=== PATIENT | male | born 1975 | race African-American/Black ===

== ENCOUNTER 2018-10-25 09:42 | Emergency (ER) | payer OTHER, MEDICAID, SELFPAY ==
[2018-10-25 09:45] VITALS: BP 152/95; PULSE 98; RESP 18; TEMP 36.4; O2SAT 95
--- NOTE | 2018-10-25 09:57 | ED.SOB ---
HPI - SOB/Dyspnea General Chief Complaint: Shortness of Breath/Dyspnea Stated Complaint: Asthma is acting up Time Seen by Provider: 10/25/18 09:57 Source: patient and other (Significant other) Mode of arrival: ambulatory Limitations: no limitations History of Present Illness This is a 43-year-old male who comes to the emergency department with complaint of shortness of breath. Patient states he woke up this morning and was wheezy. He had run out of his albuterol inhaler. He tried bronch 8 which is ephedrine and guaifenesin and was actually helpful in his wheezing resolved. The patient came in to get his albuterol refilled. He states he has not had any fevers or chills. He has had maybe some very mild runny nose for several months but no other cold cough or congestion. He does not have any chest pain, no shortness of breath currently and only when he feels wheezy. Patient has not had any other GI or urinary symptoms. No regular swelling in his extremities. Patient has a history of asthma states he was hospitalized when he was a child. He does continue to smoke tobacco. Patient is not on a steroid inhaler. Related Data Home Medications Medication Instructions Recorded Confirmed ephedrine-guaifenesin 2 tab PO Q4H PRN 10/25/18 10/25/18 Previous Rx's Medication Instructions Recorded albuterol sulfate 2 puff INHALATION Q4-6H PRN #8 gram 10/25/18 beclomethasone dipropionate [Qvar 1 puff INHALATION BID #10.6 gram 10/25/18 RediHaler] Allergies Allergy/AdvReac Type Severity Reaction Status Date / Time No Known Drug Allergies Allergy Verified 10/25/18 09:51 Review of Systems Review of Systems ROS Unobtainable: All systems reviewed & are unremarkable except as noted in HPI and below Constitutional Denies body ache(s), Denies chills, Denies fever(s), Denies lethargy and Denies weakness ENT Ears, Nose, Mouth, and Throat: Reports nasal congestion (very mild, for months) Cardiovascular Denies chest pain, Denies irregular heart rhythm, Denies lightheadedness, Denies palpitations, Reports dyspnea and Denies dyspnea on exertion Respiratory Denies change in phlegm color, Denies chest congestion, Denies cough, Denies excessive phlegm production, Denies pain on inspiration, Denies pain with cough, Reports dyspnea, Denies dyspnea on exertion and Reports wheezing Gastrointestinal Gastrointestinal: Denies abdominal pain, Denies change in bowel habits, Denies diarrhea, Denies nausea and Denies vomiting Genitourinary Denies dysuria, Denies urinary frequency and Denies urinary urgency Neurologic Denies weakness Endocrine Denies palpitations Allergic/Immunologic Reports wheezing PFSH Medical History Asthma (Acute) Social History Smoking Status: Current every day smoker Social History Smoking Status: Current every day smoker Exam Narrative Exam Narrative: GEN: well nourished, well appearing male, alert and oriented x 3, patient appears to be in no acute distress. Patient smells of tobacco smoke. HEENT: Atraumatic, pupils are equal round reactive to light, extraocular movements are intact, nares are clear, TMs are clear with no fluid, there is no conjunctival pallor. Throat is clear without any exudates, erythema, tonsillar enlargement or uvular deviation HEART: Regular rate and rhythm without murmur, clicks, rubs. LUNGS:Lungs clear to auscultation, no wheezes, rales, crackles, chest moves symmetrically, no tachypnea, no accessory muscle use. Speaks in full sentences. ABD:bowel sounds normal, soft, non-tender, no guarding, rebound, rigidity, no masses noted, no hepatosplenomegaly MSCL: Non-tender, no muscle atrophy, muscles strength 5/5 upper and lower extremities, full range of motion, normal gait NEURO:CN 2-12 intact, sensation normal Initial Vital Signs Initial Vital Signs: Vital Signs Temperature 97.6 F 10/25/18 09:45 Pulse Rate 98 H 10/25/18 09:45 Respiratory Rate 18 10/25/18 09:45 Blood Pressure 152/95 H 10/25/18 09:45 Pulse Oximetry 95 10/25/18 09:45 Course Vital Signs - 8 hr 10/25/18 09:45 Temperature 97.6 F Pulse Rate 98 H Respiratory Rate 18 Blood Pressure 152/95 H Pulse Oximetry 95 MDM - SOB/Dyspnea MDM Narrative Medical decision making narrative: Discussed with patient sounds like he has an exacerbation of his asthma. He did seem to respond to his qdrf-oxh-rydahor medication but does note a refill of his albuterol. He has symptoms or he uses has albuterol every other day sometimes multiple times during the day. He does occasionally awaken in the middle the night and requires his albuterol as well. We discussed that this sounds like he needs maintenance therapy with a steroid inhaler. He is open to starting this and given QVAR twice daily. We discussed he needs to use this medication regardless of symptoms and its goal is to decrease his albuterol use and control his asthma better. I we also discussed that he needs to rinse his mouth as well as the inhaler to prevent thrush because it is a steroid. He was also set up with a spacer and teaching with respiratory therapy on counseled not to smoke. I asked that he follow up with his primary care for recheck also some to recheck his blood pressure. I suspected elevated because he took the Excedrin earlier today. Patient does not have a known history of hypertension. Discharge Plan Departure Patient Disposition: Home Clinical Impression: Asthma Discharge Date/Time: 10/25/18 10:35 Interventions: ED Discharge Assessment Last Done: 10/25/18 10:34 Instructions: DI for Asthma -- Adult Activity Restrictions/Additional Instructions: Follow-up with her primary care in the next several weeks for recheck. You may continue albuterol 1-2 puffs every 4 hr as needed for shortness breath or wheezing. Use with a spacer. Use QVAR/steroid inhaler once twice daily regardless of symptoms. The goal of this medication is to decrease inflammation in her lungs so used her albuterol less frequently. Return to the ER for fevers greater than 100.4, worsening shortness of breath, lightheadedness or passing-out, new chest pain, persistent vomiting, new abdominal pain or other new or concerning symptoms. Prescriptions: New albuterol sulfate 90 mcg/actuation HFA aerosol inhaler 2 puff INHALATION Q4-6H PRN (Reason: shortness of breath or wheezing) Qty: 8 RF: 0 Qvar RediHaler 80 mcg/actuation HFA aerosol breath activated 1 puff INHALATION BID Qty: 10.6 RF: 0 No Action ephedrine-guaifenesin 12.5-200 mg Tablet 2 tab PO Q4H PRN (Reason: Wheezing) RF: 0
--- NOTE | 2018-10-25 10:00 | PC.NURSE ---
smoking cessation counseling given. Encouraged to seek outside assistance / speak w/ regular doctor.
== END 2018-10-25 10:35 | disposition home or self-care (01) ==
PROVIDERS: Emergency Provider Emergency Medicine
DX: J45.909 Unspecified asthma, uncomplicated (principal)
CPT/HCPCS: 94150; 99282; 99283

== ENCOUNTER 2018-12-15 11:07 | Emergency (ER) | payer OTHER, MEDICAID, SELFPAY ==
[2018-12-15 11:35] VITALS: BP 170/105; PULSE 100; RESP 16; TEMP 36.7; O2SAT 98
[2018-12-15] MEDS: ALBUTEROL 2.5 MG/3 ML NEB (ADULT) INH (11:49)
--- NOTE | 2018-12-15 12:30 | ED.URI ---
HPI - URI/Sore Throat <Mayra Junior PA-C - Last Filed: 12/15/18 21:48> General Chief Complaint: Upper Respiratory Symptoms Stated Complaint: Rk Time Seen by Provider: 12/15/18 12:08 Source: patient Mode of arrival: ambulatory Limitations: no limitations History of Present Illness HPI Narrative: This 43-year-old male ED secondary to asthma exacerbation. He states that he developed a cold a month ago with mainly nasal congestion, ear and sinus pressure and also some cough. He states he has had some postnasal drip as well. He feels like the cold symptoms mostly got better, however his asthma has been worse, especially at night when he states he is coughing a lot and having difficulty sleeping. He is able to work the day and is less dramatic. He states that he had been using albuterol inhaler which was helping but he ran out of it about a week ago and has not been able to see new PCP yet. He denies any present stent fevers or acutely worsening symptoms. he is feeling much better after nebulizer treatment here. Related Data Home Medications Medication Instructions Recorded Confirmed ephedrine-guaifenesin 2 tab PO Q4H PRN 10/25/18 10/25/18 Previous Rx's Medication Instructions Recorded albuterol sulfate 2 puff INHALATION Q4-6H PRN #8 gram 10/25/18 beclomethasone dipropionate [Qvar 1 puff INHALATION BID #10.6 gram 10/25/18 RediHaler] albuterol sulfate 2 puff INHALATION Q2-4H PRN #8.5 12/15/18 gram fluticasone propionate [Flovent 2 puff INHALATION Q12H #12 gram 12/15/18 HFA] Allergies Allergy/AdvReac Type Severity Reaction Status Date / Time No Known Drug Allergies Allergy Verified 10/25/18 09:51 Review of Systems <Mayra Junior PA-C - Last Filed: 12/15/18 21:48> Review of Systems ROS Unobtainable: All systems reviewed & are unremarkable except as noted in HPI and below PFSH <Mayra Junior PA-C - Last Filed: 12/15/18 21:48> Medical History (Updated 12/15/18 @ 12:59 by Mayra Junior PA-C) Asthma (Chronic) Surgical History (Updated 12/15/18 @ 12:59 by Mayra Juniro PA-C) History of ear surgery (Resolved) Social History Smoking Status: Current every day smoker Social History Smoking Status: Current every day smoker Exam <Mayra Junior PA-C - Last Filed: 12/15/18 21:48> Narrative Exam Narrative: GENERAL APPEARANCE: Patient sitting comfortably, in no distress. HEAD: No sinus TTP. EYES: PERRL, EOMI. EARS: Normal auditory canals, TMS intact with dull light reflexes. ORAL CAVITY: Normal oropharynx. THROAT: Clear aside from some PND noted NECK/THYROID: Neck supple, full range of motion, no cervical lymphadenopathy. LUNGS: Clear to auscultation bilaterally, no cough on exam. HEART: RRR without murmur, nl S1, S2, no S3 or S4. Initial Vital Signs Initial Vital Signs: Vital Signs Temperature 98.1 F 12/15/18 11:35 Pulse Rate 100 H 12/15/18 11:35 Respiratory Rate 16 12/15/18 11:35 Blood Pressure 170/105 H 12/15/18 11:35 Pulse Oximetry 98 12/15/18 11:35 <DO Kaylynn Nolen Last Filed: 12/16/18 07:10> Initial Vital Signs Initial Vital Signs: Vital Signs Temperature 98.1 F 12/15/18 11:35 Pulse Rate 100 H 12/15/18 11:35 Respiratory Rate 16 12/15/18 11:35 Blood Pressure 170/105 H 12/15/18 11:35 Pulse Oximetry 98 12/15/18 11:35 Course <Mayra Junior PA-C - Last Filed: 12/15/18 21:48> Orders Ordered: Discontinued Medications Albuterol (Ventolin) 2.5 mg INH NOW ONE Stop: 12/15/18 11:39 Last Admin: 12/15/18 11:49 Dose: 2.5 mg Vital Signs - 8 hr 12/15/18 11:35 Temperature 98.1 F Pulse Rate 100 H Respiratory Rate 16 Blood Pressure 170/105 H Pulse Oximetry 98 <DO Kaylynn Nolen Last Filed: 12/16/18 07:10> Orders Ordered: Discontinued Medications Albuterol (Ventolin) 2.5 mg INH NOW ONE Stop: 12/15/18 11:39 Last Admin: 12/15/18 11:49 Dose: 2.5 mg Vital Signs - 8 hr 12/15/18 11:35 Temperature 98.1 F Pulse Rate 100 H Respiratory Rate 16 Blood Pressure 170/105 H Pulse Oximetry 98 Discharge Plan Departure Patient Disposition: Home Clinical Impression: Asthma with exacerbation Qualifiers: Asthma severity: moderate Asthma persistence: unspecified Qualified Code(s): J45.901 - Unspecified asthma with (acute) exacerbation Upper respiratory infection Qualifiers: URI type: unspecified viral URI Qualified Code(s): J06.9 - Acute upper respiratory infection, unspecified Discharge Date/Time: 12/15/18 13:04 Interventions: ED Discharge Assessment Last Done: 12/15/18 13:00 Instructions: DI for Asthma -- Adult Activity Restrictions/Additional Instructions: Please return as we talked about if you have any acutely worsening symptoms. Otherwise, please merchandise pickup/receiving associate the albuterol inhaler at your pharmacy and use it as often as needed when you have cough or tight chest, and also use it at bedtime. I have also prescribed a steroid inhaler for you as you should be on this regularly to help avoid asthma flare ups. It looks like your prescription formulary is very restrictive from what I can see and they tend to cover nebulized medicine likely gave you here, however that is not practical for you to have at work. Please talk with your new PCP about getting prior authorization done if these prescriptions are not accepted. I agree with you that this exacerbation was probably due to your upper respiratory infection. I think that was a virus and does not need specific treatment since getting better, but I also think there may be some allergy component. Please let start [id number] cetirizine (Zyrtec) 10 mg each evening to help with drainage which may exacerbate your asthma. You can also add a steroid nasal spray such as Flonase which is also available [id number]. Please follow up with her new PCP later this week as you have planned. Prescriptions: New albuterol sulfate 90 mcg/actuation HFA aerosol inhaler 2 puff INHALATION Q2-4H PRN (Reason: shortness of breath or wheezing) Qty: 8.5 RF: 0 Flovent HFA 110 mcg/actuation HFA aerosol inhaler 2 puff INHALATION Q12H Qty: 12 RF: 0 No Action ephedrine-guaifenesin 12.5-200 mg Tablet 2 tab PO Q4H PRN (Reason: Wheezing) RF: 0 albuterol sulfate 90 mcg/actuation HFA aerosol inhaler 2 puff INHALATION Q4-6H PRN (Reason: shortness of breath or wheezing) Qty: 8 RF: 0 Qvar RediHaler 80 mcg/actuation HFA aerosol breath activated 1 puff INHALATION BID Qty: 10.6 RF: 0 Referrals: Betty Sorensen PA-C [Non-Staff] - <Mychal Mejia DO - Last Filed: 12/16/18 07:10> Cosign ED Attending Fabricio Attestation: I was available for consultation during this patient's emergency department encounter
[2018-12-15 12:58] VITALS: BP 158/94; PULSE 116; RESP 18; O2SAT 97
[2018-12-15 13:00] VITALS: BP 158/94
== END 2018-12-15 13:04 | disposition home or self-care (01) ==
PROVIDERS: Emergency Provider Internal Medicine
DX: J45.901 Unspecified asthma with (acute) exacerbation (principal); J06.9 Acute upper respiratory infection, unspecified
CPT/HCPCS: 94150; 94640; 99282; 99283; J7613

== ENCOUNTER → 2019-08-08 09:05 | Outpatient (CLI) | payer OTHER, MEDICAID, SELFPAY ==
[2019-08-08 09:34] LABS: RBC Urine None Seen (0-5/HPF)
[2019-08-08 09:59] LABS: Appearance Urine UA CLEAR; Bilirubin Urine UA NEGATIVE (NEGATIVE); Color Urine UA YELLOW; Glucose Urine UA NEGATIVE (Negative); Ketones Urine UA NEGATIVE (NEGATIVE); Leukocyte Esterase Urine UA NEGATIVE (NEGATIVE); Nitrite Urine UA NEGATIVE (Negative); Occult Blood Urine UA NEGATIVE (Negative); Protein Urine UA NEGATIVE (Negative); Specific Gravity Urine UA 1.025 (1.000-1.035); Urobilinogen Urine UA 0.2 E.U./dL (0.2); pH Urine UA 5.5 (4.5-8.0)
[2019-08-08 10:00] LABS: Hematocrit 42.8 % (41-53); Hemoglobin 14.7 g/dL (13.5-17.5); Mean Corpuscular HGB Conc 34.4 % (30-36); Mean Corpuscular Hemoglobin 30.4 PG (26-34); Mean Corpuscular Volume 88.4 fL (80-100); Platelet Count 303 X10^3/uL (150-400); Red Blood Cell Count 4.84 X10^6/uL (4.5-5.9); Red Cell Distribution Width 13.7 % (11.6-14.8); White Blood Cell Count 7.5 X10^3/uL (4.5-11.0)
[2019-08-08 10:12] LABS: WBC Urine 0-1/HPF (0-5/HPF)
[2019-08-08 10:13] LABS: Bacteria Urine Occasional (0-1); Culture Indicated Urine Cult Not Indicated; Mucus Urine 3+ (Negative)
[2019-08-08 10:18] LABS: Alanine Aminotransferase 44 IU/L (<50); Albumin 4.4 g/dL (3.5-5.0); Albumin Globulin Ratio 1.3 (1.0-2.8); Alkaline Phosphatase 70 U/L (38-126); Aspartate Aminotransferase 36 IU/L (17-59); Bilirubin Total 0.5 mg/dL (0.2-1.3); Blood Urea Nitrogen 19 mg/dL (9-20); Calcium 9.6 mg/dL (8.4-10.2); Carbon Dioxide 26 mmol/L (22-32); Chloride 103 mmol/L (98-107); Cholesterol 168 mg/dL (140-199); Estimated Glomerular Filt Rate > 60.0 mL/min (>60); Globulin 3.4 g/dL (1.7-4.1); Glucose 108 mg/dL (70-100); HDL Cholesterol 41 mg/dL (40-60); HEMOLYSIS < 15 (0-50); LDL Cholesterol Calculated 111 mg/dL (<100); Potassium 3.8 mmol/L (3.4-5.1); Sodium 139 mmol/L (137-145); Total Protein 7.8 g/dL (6.3-8.2); Triglycerides 79 mg/dL (35-150)
[2019-08-08 10:23] LABS: Microalbumin Urine Random 2.5 mg/dL (0-1.6)
[2019-08-08 10:57] LABS: Creatinine Urine Random 402.3 mg/dL; Microalbumi Creatinin Ratio Ur 6.2 ug/mg CR (<30)
== END ==
PROVIDERS: PCP Nurse Practitioner Family; Visit Provider Nurse Practitioner Family
DX: Z00.00 Encounter for general adult medical examination without abnormal findings (principal); K04.7 Periapical abscess without sinus; I10 Essential (primary) hypertension; Z13.6 Encounter for screening for cardiovascular disorders
CPT/HCPCS: 36415; 80053; 80061; 81001; 82043; 82570; 85027

== ENCOUNTER → 2020-04-09 09:49 | Outpatient (CLI) | payer OTHER, MEDICAID, SELFPAY ==
[2020-04-09 11:15] LABS: Hemoglobin A1C% w Est Avg Glu 5.9 % (4.0-6.0)
[2020-04-09 11:22] LABS: Creatinine Urine Random 258.9 mg/dL
[2020-04-09 11:25] LABS: Alanine Aminotransferase 46 IU/L (<50); Albumin 4.4 g/dL (3.5-5.0); Albumin Globulin Ratio 1.3 (1.0-2.8); Alkaline Phosphatase 72 U/L (38-126); Aspartate Aminotransferase 43 IU/L (17-59); BUN Creatinine Ratio 20.8 (6-22); Bilirubin Total 0.7 mg/dL (0.2-1.3); Blood Urea Nitrogen 22 mg/dL (9-20); Calcium 9.9 mg/dL (8.4-10.2); Carbon Dioxide 29 mmol/L (22-32); Chloride 106 mmol/L (98-107); Estimated Glomerular Filt Rate > 60.0 mL/min (>60); Globulin 3.5 g/dL (1.7-4.1); Glucose 100 mg/dL (70-100); HEMOLYSIS < 15 (0-50); Potassium 4.5 mmol/L (3.4-5.1); Sodium 139 mmol/L (137-145); Total Protein 7.9 g/dL (6.3-8.2)
[2020-04-09 11:26] LABS: Microalbumi Creatinin Ratio Ur 4.2 ug/mg CR (<30); Microalbumin Urine Random 1.1 mg/dL (0-1.6)
== END ==
PROVIDERS: PCP Nurse Practitioner Family; Referring Provider Nurse Practitioner Family; Visit Provider Nurse Practitioner Family
DX: I10 Essential (primary) hypertension (principal); R73.01 Impaired fasting glucose
CPT/HCPCS: 36415; 80053; 82043; 82570; 83036

== ENCOUNTER 2020-04-21 11:26 | Emergency (ER) | payer OTHER, MEDICAID, SELFPAY ==
[2020-04-21 11:36] VITALS: BP 164/93; PULSE 86; RESP 12; TEMP 37.1; O2SAT 97; BMI 29.7
--- NOTE | 2020-04-21 11:41 | DI.RAD.S_ITS ---
PROCEDURE: XR CHEST 2V INDICATIONS: sob, coughing up blood TECHNIQUE: 2 views of the chest were acquired. COMPARISON: [facility], , CHEST 1 VIEW, 10/31/2017, 12:31. FINDINGS: Surgical changes and devices: None. Lungs and pleura: Subtle opacity in the right lower lobe could represent a mild or developing pneumonia in the appropriate clinical setting. No pleural effusions or pneumothorax. No definite radiograph signs of tuberculosis. Mediastinum: Mediastinal contours are normal. Heart size is normal. Bones and chest wall: No suspicious bony abnormalities. Soft tissues appear unremarkable. IMPRESSION: Subtle opacity in the right lower lobe could represent a mild or developing consolidation in the appropriate clinical setting. If there is suspicion for a pulmonary nodule, a CT may be obtained for further evaluation. Dictated by: Alexey Morse M.D. on 04/21/2020 at 12:02 Approved by: Alexey Morse M.D. on 04/21/2020 at 12:06
[2020-04-21 11:53] VITALS: PULSE 65; O2SAT 98
[2020-04-21 11:55] LABS: Add Manual Diff / Slide Review NO; Basophils Absolute Auto 100 /uL (0-100); Basophils Percent Auto 0.9 % (0-2); Eosinophils Absolute Auto 500 /uL (0-450); Eosinophils Percent Auto 5.7 % (2-4); Hematocrit 41.7 % (41-53); Hemoglobin 14.3 g/dL (13.5-17.5); Lymphocytes Absolute Auto 2900 /uL (1100-4500); Lymphocytes Percent Auto 33.9 % (25-40); Mean Corpuscular HGB Conc 34.4 % (30-36); Mean Corpuscular Hemoglobin 30.8 PG (26-34); Mean Corpuscular Volume 89.6 fL (80-100); Monocytes Absolute Auto 600 /uL (0-900); Monocytes Percent Auto 6.5 % (3-14); Neutrophils Absolute Auto 4600 /uL (1500-7000); Platelet Count 237 X10^3/uL (150-400); Red Blood Cell Count 4.65 X10^6/uL (4.5-5.9); Red Cell Distribution Width 13.1 % (11.6-14.8); White Blood Cell Count 8.7 X10^3/uL (4.5-11.0)
[2020-04-21 12:00] VITALS: BP 142/94; PULSE 76; O2SAT 97
[2020-04-21 12:05] LABS: INR 0.9 (0.9-1.3); Prothrombin Time 10.4 SECONDS (10.1-12.7)
[2020-04-21 12:07] LABS: Alanine Aminotransferase 38 IU/L (<50); Albumin 4.1 g/dL (3.5-5.0); Albumin Globulin Ratio 1.2 (1.0-2.8); Alkaline Phosphatase 70 U/L (38-126); Aspartate Aminotransferase 38 IU/L (17-59); BUN Creatinine Ratio 23.1 (6-22); Bilirubin Total 0.5 mg/dL (0.2-1.3); Blood Urea Nitrogen 21 mg/dL (9-20); Calcium 9.4 mg/dL (8.4-10.2); Carbon Dioxide 27 mmol/L (22-32); Chloride 106 mmol/L (98-107); Creatine Kinase 440 U/L (55-170); Estimated Glomerular Filt Rate > 60.0 mL/min (>60); Globulin 3.5 g/dL (1.7-4.1); Glucose 104 mg/dL (70-100); HEMOLYSIS < 15 (0-50); Potassium 3.9 mmol/L (3.4-5.1); Sodium 137 mmol/L (137-145); Total Protein 7.6 g/dL (6.3-8.2)
[2020-04-21 12:08] LABS: PTT Partial Thromboplastin Tim 30 SECONDS (26.4-36.2)
[2020-04-21 12:09] LABS: D Dimer < 200 ng/mL (<230)
--- NOTE | 2020-04-21 12:09 | ED_ITS ---
HPI - URI/Sore Throat <KELLI AbramsBC - Last Filed: 04/21/20 14:27> General Chief Complaint: Upper Respiratory Symptoms Stated Complaint: coughing up blood 2xdays Time Seen by Provider: 04/21/20 11:31 Source: patient and family Mode of arrival: Ambulatory Limitations: no limitations History of Present Illness HPI Narrative: The patient is a 45-year-old male current smoker who presents with family for chief complaint of hemoptysis. 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 He denies any fevers. He states he had 1 episode of hemoptysis 2 days ago, then it started again last night and lasted throughout the night. His significant other shows a tissue covered with speckled blood. He denies any fevers, states he feels as though his asthma slightly worse. He does have a history of asthma states he needs to stop smoking. No nausea vomiting or diarrhea. Denies any abdominal pain. No history of blood clots. He states that he is also coughing up some phlegm at times. Related Data Home Medications Medication Instructions Recorded Confirmed acetaminophen 500 mg tablet 1,000 mg PO DAILY PRN tab 03/27/19 04/24/19 ibuprofen 200 mg tablet 400 mg PO DAILY PRN tab 03/27/19 04/24/19 Previous Rx's Medication Instructions Recorded amoxicillin 875 mg-potassium 1 tab PO BID #10 tab 03/27/19 clavulanate 125 mg tablet blood pressure cuff #1 ea 03/27/19 fluticasone propionate 110 2 puff INHALATION Q12H #12 gram 03/27/19 mcg/actuation HFA aerosol inhaler albuterol sulfate 90 mcg/actuation 2 puff INHALATION Q2-4H PRN #8.5 02/20/20 aerosol inhaler gram lisinopril 20 mg tablet 20 mg PO DAILY #90 tab 04/15/20 doxycycline hyclate 100 mg PO BID #20 tab 04/21/20 Allergies Allergy/AdvReac Type Severity Reaction Status Date / Time No Known Drug Allergies Allergy Verified 04/21/20 11:37 Review of Systems <KELLI AbramsBC - Last Filed: 04/21/20 14:27> Review of Systems Narrative: GENERAL: Denies chills, fatigue, malaise, fever, sweats. HEENT: Denies sinus pain, ear pain, sore throat, difficulty swallowing, dizziness. RESPIRATORY: See HPI CARDIOVASCULAR: Denies chest pain, palpitations, orthopnea, edema, GASTROINTESTINAL: Denies nausea, vomiting, abdominal pain, diarrhea, constipation, melena. : Denies dysuria, frequency, incontinence, hematuria, urinary retention. MUSCULOSKELETAL: denies weakness, joint pain, or bony pain SKIN: Denies rash, skin lesions, or other NEUROLOGIC: Denies weakness, headache, numbness, change in speech, confusion, seizures, incoordination. PSYCHIATRIC: No concerning psychosocial issues. 12 point review of systems is negative except for those stated above Patient History <ZENA Abrams - Last Filed: 04/21/20 14:27> Medical History (Updated 04/22/20 @ 13:31 by PAWEL Branham) Asthma (Chronic) Chicken pox (Resolved) Hearing loss (Chronic) Lung abnormality (Acute 04/2020) Vision disorder (Chronic) Witnessed apneic spells (Acute 2011) Surgical History Anesthesia (Resolved) History of ear surgery (Resolved) Social History Smoking Status: Current every day smoker Tobacco: How many years used: 20 quit status: considering quitting (patient given smoking cessation handout) alcohol intake: current (a pint per day, 1-2 beers/day) substance use type: marijuana (2x/week) Smoking Status: Current every day smoker alcohol intake frequency: 0-2 drinks per day Alcohol type: beer Substance Use Type: marijuana Exam <ZENA Abrams - Last Filed: 04/21/20 14:27> Narrative Exam Narrative: GENERAL: This is a well-nourished, well-developed patient, in no acute distress HEAD: Atraumatic. Normocephalic. No temporal or scalp tenderness. EYES: Pupils equal round and reactive. Extraocular motions intact. No scleral icterus. No injection or drainage. ENT: Nose without bleeding, purulent drainage or septal hematoma. Wearing a mask. Airway patent. Excoriation noted back of throat, no bleeding NECK: Trachea midline. No JVD or lymphadenopathy. Supple, nontender, no meningeal signs. CARDIOVASCULAR: Regular rate and rhythm RESPIRATORY: Diminished to auscultation. Breath sounds equal bilaterally. No wheezes, rales, or rhonchi. No cough. No increased respiratory effort. Speaking full sentences. GASTROINTESTINAL: Abdomen soft, non-tender, nondistended. No hepato- splenomegaly, or palpable masses. No guarding. Active bowel sounds all 4 quadrants EXTREMITIES: No clubbing, cyanosis, or edema. No joint tenderness, effusion, or edema noted. BACK: Nontender without deformity or crepitance. No flank tenderness. NEURO: AOx3. SKIN: No rash or erythema on visible skin Initial Vital Signs Initial Vital Signs: Vital Signs Temperature 98.7 F 04/21/20 11:36 Pulse Rate 86 04/21/20 11:36 Respiratory Rate 12 04/21/20 11:36 Blood Pressure 164/93 H 04/21/20 11:36 Pulse Oximetry 97 04/21/20 11:36 <Toma Forbes DO - Last Filed: 04/28/20 06:59> Initial Vital Signs Initial Vital Signs: Vital Signs Temperature 98.7 F 04/21/20 11:36 Pulse Rate 86 04/21/20 11:36 Respiratory Rate 12 04/21/20 11:36 Blood Pressure 164/93 H 04/21/20 11:36 Pulse Oximetry 97 04/21/20 11:36 Scores <ZENA Abrams - Last Filed: 04/21/20 14:27> ABCD2 Citation: Lancet. 2006Sep 07;369(1327):283-92. Validation and refinement of scores to predict very early stroke risk after transient ischaemic attack. Abraham SC1, Pal PM, Jose MN, Chucky MF, Mike JS, Donald AL, Nadir S. CURB-65 Confusion: No BUN >19mg/dL (>7mmol/L): Yes Respiratory rate greater or equal to 30: No SBP <90mmHg or DBP less or equal to 60mmHg: No Age 65 or Older: No CURB-65 Total: 1 Score 0-1 Outpatient care, Score 2 Inpt vs. Obs, Score 3 or over Inpt admit with ICU for score of 4-5 GCS Ankur coma scale eye opening: Spontaneous Ankur coma scale verbal response: Orientated Ankur coma scale motor response: Obey commands [place] coma scale total score: 15 Course <ZENA Abrams - Last Filed: 04/21/20 14:27> Orders Ordered: ED Orders 04/21/20 11:41 XR chest 2V Stat EKG-12 Lead Stat 04/21/20 11:45 Complete Blood Count AUTO DIFF Stat Comprehensive Metabolic Panel Stat D Dimer Stat NT-proBNP (BNP-Adult 18+) Stat Partial Thromboplastin Time Stat Prothrombin Time INR Stat Troponin & CK Cardiac Panel Stat Vital Signs Vital signs: Vital Signs - 8 hr 04/21/20 11:36 04/21/20 11:53 04/21/20 12:00 Temperature 98.7 F Pulse Rate 86 65 76 Respiratory Rate 12 Blood Pressure 164/93 H 142/94 H Pulse Oximetry 97 98 97 04/21/20 12:30 Temperature Pulse Rate 67 Respiratory Rate Blood Pressure 137/91 H Pulse Oximetry 97 <Toma Forbes DO - Last Filed: 04/28/20 06:59> Orders Ordered: ED Orders 04/21/20 11:41 XR chest 2V Stat EKG-12 Lead Stat 04/21/20 11:45 Complete Blood Count AUTO DIFF Stat Comprehensive Metabolic Panel Stat D Dimer Stat NT-proBNP (BNP-Adult 18+) Stat Partial Thromboplastin Time Stat Prothrombin Time INR Stat Troponin & CK Cardiac Panel Stat Vital Signs Vital signs: Vital Signs - 8 hr 04/21/20 11:36 04/21/20 11:53 04/21/20 12:00 Temperature 98.7 F Pulse Rate 86 65 76 Respiratory Rate 12 Blood Pressure 164/93 H 142/94 H Pulse Oximetry 97 98 97 04/21/20 12:30 Temperature Pulse Rate 67 Respiratory Rate Blood Pressure 137/91 H Pulse Oximetry 97 MDM - URI/Sore Throat <ZENA Abrams - Last Filed: 04/21/20 14:27> Lab Data Result diagrams: 04/21/20 11:45 04/21/20 11:45 Labs: Lab Results 04/21/20 04/21/20 04/21/20 Range/Units 11:45 11:45 11:45 WBC 8.7 (4.5-11.0) X10^3/uL RBC 4.65 (4.5-5.9) X10^6/uL Hgb 14.3 (13.5-17.5) g/dL Hct 41.7 (41-53) % MCV 89.6 (80-100) fL MCH 30.8 (26-34) PG MCHC 34.4 (30-36) % RDW 13.1 (11.6-14.8) % Plt Count 237 (150-400) X10^3/uL Neut % (Auto) 53.0 (50-75) % Lymph % (Auto) 33.9 (25-40) % Price % (Auto) 6.5 (3-14) % Eos % (Auto) 5.7 H (2-4) % Baso % (Auto) 0.9 (0-2) % Neut # (Auto) 4600 (2625-2808) /uL Lymph # (Auto) 2900 (2317-3174) /uL Price # (Auto) 600 (0-900) /uL Eos # (Auto) 500 H (0-450) /uL Baso # (Auto) 100 (0-100) /uL PT 10.4 (10.1-12.7) SECONDS INR 0.9 (0.9-1.3) APTT 30 (26.4-36.2) SECONDS D-Dimer < 200 (<230) ng/mL Sodium 137 (137-145) mmol/L Potassium 3.9 (3.4-5.1) mmol/L Chloride 106 (98-107) mmol/L Carbon Dioxide 27 (22-32) mmol/L BUN 21 H (9-20) mg/dL Creatinine 0.91 (0.66-1.25) mg/dL Estimated GFR > 60.0 (>60) mL/min BUN/Creatinine Ratio 23.1 H (6-22) Glucose 104 H (70-100) mg/dL Calcium 9.4 (8.4-10.2) mg/dL Total Bilirubin 0.5 (0.2-1.3) mg/dL AST 38 (17-59) IU/L ALT 38 (<50) IU/L Alkaline Phosphatase 70 (38-126) U/L Total Creatine Kinase 440 H (55-170) U/L CK-MB (CK-2) 2.57 H (<2.37) ng/mL CK-MB (CK-2) Rel Index 0.6 L (1.5-5.0) % Troponin I < 0.012 (0.01-0.034) ng/mL NT-Pro-B Natriuret Pep 21 (<125) pg/mL Total Protein 7.6 (6.3-8.2) g/dL Albumin 4.1 (3.5-5.0) g/dL Globulin 3.5 (1.7-4.1) g/dL Albumin/Globulin Ratio 1.2 (1.0-2.8) Imaging Data Chest x-ray: Radiologist's Impression: [address] [place] [id number] XRay Report Signed Patient: Nino Pinon JMR#: [id number] : 1975Acct:[id number] Age/Sex: 45 / MDate of Service: 04/21/20 Loc: ED Accession Number: [id number] Procedure: XR chest 2V Ordering Provider: Luh Morales PROCEDURE: XR CHEST 2V INDICATIONS: sob, coughing up blood TECHNIQUE: 2 views of the chest were acquired. COMPARISON: , , CHEST 1 VIEW, 10/31/2017, 12:31. FINDINGS: Surgical changes and devices: None. Lungs and pleura: Subtle opacity in the right lower lobe could represent a mild or developing pneumonia in the appropriate clinical setting. No pleural effusions or pneumothorax. No definite radiograph signs of tuberculosis. Mediastinum: Mediastinal contours are normal. Heart size is normal. Bones and chest wall: No suspicious bony abnormalities. Soft tissues appear unremarkable. IMPRESSION: Subtle opacity in the right lower lobe could represent a mild or developing consolidation in the appropriate clinical setting. If there is suspicion for a pulmonary nodule, a CT may be obtained for further evaluation. Dictated by: Alexey Morse M.D. on 04/21/2020 at 12:02 Approved by: Alexey Morse M.D. 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 He appears hemodynamically stable, alert oriented and nontoxic appearing throughout his ED stay. The patient's lab work is grossly within normal limits, D-dimer is negative helping rule out pulmonary embolism. Additionally the pat ient is not hypoxic, not tachycardic, in no acute distress. He has no recent immobilization etcetera. However his chest x-ray is concerning for an opacities right lower lobe, so will treat the patient for pneumonia with doxycycline. Discussed case with Dr Forbes. Did encourage the patient to stop smoking, follow-up with primary care provider in the next few days and come back to the emergency department for any acute concerns. Discussed that imaging cannot rule out any potential mass in the area of his pneumonia and that he needs to be re- evaluated. Encouraged use of sunscreen, skin covering swell on doxycycline. Patient has no questions or concerns upon discharge and states understanding return precautions as well as follow-up care. <Toma Forbes, DO - Last Filed: 04/28/20 06:59> Lab Data Labs: Lab Results 04/21/20 04/21/20 04/21/20 Range/Units 11:45 11:45 11:45 WBC 8.7 (4.5-11.0) X10^3/uL RBC 4.65 (4.5-5.9) X10^6/uL Hgb 14.3 (13.5-17.5) g/dL Hct 41.7 (41-53) % MCV 89.6 (80-100) fL MCH 30.8 (26-34) PG MCHC 34.4 (30-36) % RDW 13.1 (11.6-14.8) % Plt Count 237 (150-400) X10^3/uL Neut % (Auto) 53.0 (50-75) % Lymph % (Auto) 33.9 (25-40) % Price % (Auto) 6.5 (3-14) % Eos % (Auto) 5.7 H (2-4) % Baso % (Auto) 0.9 (0-2) % Neut # (Auto) 4600 (3632-2158) /uL Lymph # (Auto) 2900 (1810-9443) /uL Price # (Auto) 600 (0-900) /uL Eos # (Auto) 500 H (0-450) /uL Baso # (Auto) 100 (0-100) /uL PT 10.4 (10.1-12.7) SECONDS INR 0.9 (0.9-1.3) APTT 30 (26.4-36.2) SECONDS D-Dimer < 200 (<230) ng/mL Sodium 137 (137-145) mmol/L Potassium 3.9 (3.4-5.1) mmol/L Chloride 106 (98-107) mmol/L Carbon Dioxide 27 (22-32) mmol/L BUN 21 H (9-20) mg/dL Creatinine 0.91 (0.66-1.25) mg/dL Estimated GFR > 60.0 (>60) mL/min BUN/Creatinine Ratio 23.1 H (6-22) Glucose 104 H (70-100) mg/dL Calcium 9.4 (8.4-10.2) mg/dL Total Bilirubin 0.5 (0.2-1.3) mg/dL AST 38 (17-59) IU/L ALT 38 (<50) IU/L Alkaline Phosphatase 70 (38-126) U/L Total Creatine Kinase 440 H (55-170) U/L CK-MB (CK-2) 2.57 H (<2.37) ng/mL CK-MB (CK-2) Rel Index 0.6 L (1.5-5.0) % Troponin I < 0.012 (0.01-0.034) ng/mL NT-Pro-B Natriuret Pep 21 (<125) pg/mL Total Protein 7.6 (6.3-8.2) g/dL Albumin 4.1 (3.5-5.0) g/dL Globulin 3.5 (1.7-4.1) g/dL Albumin/Globulin Ratio 1.2 (1.0-2.8) Discharge Plan Departure Patient Disposition: Home Clinical Impression: Pneumonia Qualifiers: Pneumonia type: due to unspecified organism Laterality: right Lung location: lower lobe of lung Qualified Code(s): J18.9 - Pneumonia, unspecified organism Discharge Date/Time: 04/21/20 13:05 Instructions: DI for Pneumonia -- Adult, DI for Hemoptysis Activity Restrictions/Additional Instructions: Thank you for trusting us with your care today. As discussed, your blood work came back reassuring. I sent a prescription of antibiotic to [facility] in [place]. It is important that you use sunscreen with this antibiotic. I also suggest a probiotic and/or yogurt to help prevent antibiotic associated diarrhea Please follow-up with primary care provider in the next few days. As discussed please come back to the emergency department for any acute concerns. Prescriptions: New doxycycline hyclate 100 mg tablet 100 mg PO BID Qty: 20 RF: 0 No Action albuterol sulfate 90 mcg/actuation HFA aerosol inhaler 2 puff INHALATION Q2-4H PRN (Reason: shortness of breath or wheezing) Qty: 8.5 RF: 2 lisinopril 20 mg tablet 20 mg PO DAILY Qty: 90 RF: 0 acetaminophen [Tylenol Extra Strength] 500 mg tablet 1,000 mg PO DAILY PRNRF: 0 ibuprofen 200 mg tablet 400 mg PO DAILY PRNRF: 0 Flovent HFA 110 mcg/actuation HFA aerosol inhaler 2 puff INHALATION Q12H Qty: 12 RF: 2 amoxicillin-pot clavulanate 875-125 mg tablet 1 tab PO BID Qty: 10 RF: 0 (DME) blood pressure cuff Qty: 1 RF: 0 Referrals: Stefanie Nair ARNP [Primary Care Provider] - <Toma Forbes DO - Last Filed: 04/28/20 06:59> Cosign ED Attending Fabricio Attestation: I was immediately available in the department for consultation. Documentation has been reviewed. I agree with assessment and plan.
[2020-04-21 12:19] LABS: NT-proBNP (BNP-Adult 18+) 21 pg/mL (<125); Troponin I < 0.012 ng/mL (0.01-0.034)
[2020-04-21 12:22] LABS: CKMB % Relative Index 0.6 % (1.5-5.0); Creatine Kinase MB 2.57 ng/mL (<2.37)
[2020-04-21 12:30] VITALS: BP 137/91; PULSE 67; O2SAT 97
== END 2020-04-21 13:05 | disposition home or self-care (01) ==
PROVIDERS: Emergency Provider Nurse Practitioner Family; PCP Nurse Practitioner Family
DX: J18.9 Pneumonia, unspecified organism (principal); R04.2 Hemoptysis
CPT/HCPCS: 36415; 71046; 80053; 82550; 82553; 83880; 84484; 85025; 85379; 85610; 85730; 93005; 99283; 99284

== ENCOUNTER → 2020-05-02 13:50 | Outpatient (CLI) | payer OTHER, MEDICAID, SELFPAY ==
--- NOTE | 2020-05-02 14:28 | DI.CT.S_ITS ---
PROCEDURE: CT CHEST W CON INDICATIONS: abnormal cxr, possible lung nodule TECHNIQUE: After the administration of intravenous contrast, 5 mm thick sections acquired from the pulmonary apices to the posterior costophrenic angles. 1 mm axial lung, 5 mm thick coronal and sagittal reformats and 7 mm axial MIP were acquired. For radiation dose reduction, the following was used: automated exposure control, adjustment of mA and/or kV according to patient size. COMPARISON: [facility], , CHEST 1 VIEW, 10/31/2017, 12:31. [facility], , XR CHEST 2V, 04/21/2020, 11:34. FINDINGS: Image quality: Excellent. Lungs and pleura: The opacity in the right lower lobe seen on the chest x-ray is not visualized on CT,. There is a 3 mm nodule along the right major fissure (series 3, image 206). A 4 mm intrafissural nodule is seen along the left major fissure (series 3, image 148). No acute air space opacities. No pleural effusions or pneumothorax. Central and peripheral airways are patent and normal in caliber. Mediastinum: Heart size is normal. No pericardial effusion. No mediastinal or hilar adenopathy by size criteria. Thoracic aorta and central pulmonary arteries are normal in size. Esophagus is normal in caliber. There is a small hiatal hernia. Bones and chest wall: No suspicious bony lesions. No vertebral body compression fractures. No axillary or supraclavicular adenopathy by size criteria. Thyroid gland is normal . There is gynecomastia. Abdomen: Visualized upper abdominal solid organs appear normal. Upper abdominal bowel loops are normal in caliber. IMPRESSION: 1. The right lower lobe opacity seen on the chest x-ray is not visualized on the current CT, either resolved in the interim or caused by an artifact. 2. A couple small lung nodules along the major fissures, 1 on each side. Please see enclosed follow-up recommendation. 3. Gynecomastia. Fleischner Society criteria for SOLID lung nodule followup. Nodule size (mm)Low-risk patientHigh-risk patient?4No follow-up neededFollow-up at 12 mo; if no change, no further follow-up>3-7Ubsgby-ow CT at 12 mo; if no change, no further follow-up needed.Initial follow-up CT at 6-12 mo, then 18-24 mo if no change. >6-8Initial follow-up CT at 6-12 mo, then 18-24 mo if no change. Initial follow-up CT at 3-6 mo, then 9-12 mo and 24 mo if no change. >8Follow-up CT at 3, 9, 24 mo. Or PET and/or biopsy.Same as for low-risk pts. Dictated by: Deanna Peña M.D. on 05/02/2020 at 17:14 Approved by: Deanna Peña M.D. on 05/02/2020 at 17:49
== END ==
PROVIDERS: PCP Nurse Practitioner Family; Referring Provider Nurse Practitioner Family; Visit Provider Nurse Practitioner Family
DX: J18.9 Pneumonia, unspecified organism (principal); R91.8 Other nonspecific abnormal finding of lung field; N62 Hypertrophy of breast
CPT/HCPCS: 71260; Q9967

== ENCOUNTER → 2020-06-17 11:49 | Outpatient (CLI) | payer OTHER, MEDICAID, SELFPAY ==
--- NOTE | 2020-06-17 11:51 | DI.RAD.S_ITS ---
PROCEDURE: XR CHEST 2V INDICATIONS: pneumonia follow up TECHNIQUE: 2 views of the chest were acquired. COMPARISON: [facility], CT, CT CHEST W CON, 05/02/2020, 14:06. [facility], CR, CHEST 1 VIEW, 10/31/2017, 12:31. [facility], CR, XR CHEST 2V, 04/21/2020, 11:34. FINDINGS: Surgical changes and devices: None. Lungs and pleura: Scattered subsegmental atelectasis and/or scarring. No focal consolidation. No pleural effusion or pneumothorax. Mediastinum: Mediastinal contours are normal. Heart size is normal. Bones and chest wall: No suspicious bony abnormalities. Soft tissues appear unremarkable. IMPRESSION: Mild right basilar atelectasis/scarring. No acute consolidation. Dictated by: Long Meier M.D. on 06/17/2020 at 12:22 Approved by: Long Meier M.D. on 06/17/2020 at 12:25
== END ==
PROVIDERS: PCP Nurse Practitioner Family; Referring Provider Nurse Practitioner Family; Visit Provider Nurse Practitioner Family
DX: Z09 Encounter for follow-up examination after completed treatment for conditions other than malignant neoplasm (principal); Z87.01 Personal history of pneumonia (recurrent)
CPT/HCPCS: 71046

== ENCOUNTER 2023-02-20 09:21 | Emergency (ER) | payer OTHER, MEDICAID, SELFPAY ==
[2023-02-20 09:26] VITALS: BP 155/99; PULSE 96; RESP 15; TEMP 36.8; O2SAT 100; BMI 27.0
[2023-02-20 09:31] VITALS: BP 155/99; PULSE 102; O2SAT 100
== END 2023-02-20 11:13 | disposition left against medical advice (07) ==
PROVIDERS: Emergency Provider Emergency Medicine; PCP Nurse Practitioner Family
DX: T14.8XXA Other injury of unspecified body region, initial encounter (principal)
CPT/HCPCS: 99281